=== PATIENT | female | born 1965 | race Caucasian/White ===

== ENCOUNTER 2017-05-18 16:05 | Inpatient (IN) | payer SELFPAY ==
[~2017-05-18] VITALS: Ht 162.6 cm; Wt 99.8 kg
[~2017-05-18 16:05] MED LIST: NO MEDS
[2017-05-18 16:31] VITALS: BP 139/94
--- NOTE | 2017-05-18 19:15 | NUR ---
TO ER BED 7
--- NOTE | 2017-05-18 19:21 | NUR ---
Patient being evaluated by Dr. Ward at bedside.
[2017-05-18] MEDS ORDERED: KETOROLAC 60 MG/2 ML VIAL IM ONE (19:25)
--- NOTE | 2017-05-18 19:30 | NUR ---
51Y/F PT. PRESENTS TO ED WITH C/O LEFT NECK/SHOULDER/ANTERIOR CHEST WALL/LUE SHARP PAIN X 2 DAYS , WORSE LAST NIGHT AND TODAY WITH NAUSEA AND LOOSE STOOLS LAST NIGHT TEMPORAL BURNING PAIN, DIZZINESS SOB, HX--MORALES [place], [place] 2013, DM, HTN. AAO X4, AMBULATORY WITH STEADY GAIT. REPSIRTAIONS, ROOM AIR, EVEN AND UNLABORED. NO INJURY. C/O BODY PAIN 01/31. VSS, ER MD MADE AWARE OF PT. STATUS.
[2017-05-18 19:39] LABS: APPEARANCE,URINE CLEAR (CLEAR); BILIRUBIN,URINE NEGATIVE (NEGATIVE); BLOOD, URINE NEGATIVE (NEGATIVE); COLOR,URINE YELLOW (YELLOW); LEUKOCYTE ESTERASE ,URINE NEGATIVE (NEGATIVE); NITRITE, URINE NEGATIVE (NEGATIVE); UGLUCOSE NEGATIVE (NEGATIVE)
[2017-05-18 19:47] LABS: BASOPHILS # (AUTO) 0.1 K/uL (0.00-0.22); BASOPHILS % (AUTO) 0.5 % (0.0-2.0); EOSINOPHILS # (AUTO) 0.1 K/uL (0-0.4); EOSINOPHILS % (AUTO) 0.9 % (0.0-4.0); HEMATOCRIT 37.4 % (36-48); HEMOGLOBIN 12.3 g/dL (12.0-16.0); LYMPHOCYTES # (AUTO) 2.4 K/uL (2.5-16.5); LYMPHOCYTES % (AUTO) 23.1 % (20.5-51.1); MEAN CORPUSCULAR HEMOGLOBIN 29 pg (27-31); MEAN CORPUSCULAR HGB CONC 33 g/dL (33-37); MEAN CORPUSCULAR VOLUME 89 fL (80-94); MONOCYTES # (AUTO) 0.3 K/uL (0.8-1.0); MONOCYTES % (AUTO) 3.2 % (1.7-9.3); NEUTROPHILS # (AUTO) 7.4 K/uL (1.8-7.7); NEUTROPHILS % (AUTO) 72.3 % (42.2-75.2); PLATELET COUNT (AUTO) 328 K/uL (140-450); RED BLOOD CELL COUNT(AUTO) 4.23 MIL/uL (4.20-5.40); RED CELL DISTRIBUTION WIDTH 12.6 % (11.6-13.7); WHITE BLOOD COUNT (AUTO) 10.3 K/uL (4.8-10.8)
[2017-05-18 20:20] LABS: ANION GAP 10.3 (8-16); CARBON DIOXIDE 28.3 mmol/L (21-32); CREATININE 0.9 mg/dL (0.6-1.3); POTASSIUM 3.6 mmol/L (3.5-5.1)
[2017-05-18 20:25] LABS: TOTAL BILIRUBIN 0.4 mg/dL (0.0-1.0)
[2017-05-18 20:26] LABS: ALBUMIN 3.4 g/dL (3.4-5.0)
[2017-05-18] MEDS ORDERED: NACL 0.9% 1,000 ML IV SCH (21:32)
[2017-05-18] MEDS ORDERED: NITROGLYCERIN 0.4 MG TAB SL ONE (21:35)
[2017-05-18] MEDS ORDERED: ACETAMINOPHEN 325 MG TAB PO PRN (21:35)
[2017-05-18] MEDS ORDERED: ASPIRIN 81 MG TAB.CHEW PO ONE (21:35)
[2017-05-18] MEDS ORDERED: MORPHINE SULFATE 4 MG/ML SYR IVP ONE (21:35)
[2017-05-18] MEDS ORDERED: ONDANSETRON 4 MG/2 ML VIAL IVP PRN (21:35)
[2017-05-18] MEDS ORDERED: ONDANSETRON 4 MG/2 ML VIAL IVP ONE (21:35)
[2017-05-18] MEDS ORDERED: NITROGLYCERIN 0.4 MG TAB SL PRN (21:35)
--- NOTE | 2017-05-18 21:40 | NUR ---
NTG 0.4 MG SL X1 ADMINITERED, NDAR. CHEST PAIN RELIEFE
--- NOTE | 2017-05-18 22:20 | NUR ---
Patient will be admitted to care of . Admited to TELEMETRY. Will go to room 104B. Belongings list completed. Report to KALE MOREL.
[2017-05-18 22:56] LABS: CHOL/HDL RATIO 3.4 (1-4.5); FREE T4 (FREE THYROXINE) 0.99 ng/dL (0.76-1.46); MAGNESIUM 2.1 mg/dL (1.8-2.4); PHOSPHORUS 3.3 mg/dL (2.5-4.9); THYROID STIMULATING HORMONE 1.33 uIU/mL (0.34-3.74)
[2017-05-18 23:00] VITALS: BP 137/80
--- NOTE | 2017-05-18 23:00 | NUR ---
RECEIVED PT FROM ER VIA LUIS WOLFE IN STABLE CONDITION AAOX4. PT HAS C/O BODY ACHES AND CHEST PAIN WHEN SHE PRESENT TO THE ER. PT DENIES ANY CHEST PAIN RIGHT NOW. PT IS ON RA, IV TO R HAND 20G PATENT AND INTACT, INFUSING WELL. SKIN IS INTACT. SKIN IS WARM AND DRY TO TOUCH, RESPIRATIONS ARE EVEN AND UNLABORED, LUNGS CLEAR, BOWEL SOUNDS PRESENT. PT IS AMBULATORY. INITIAL ASSESSMENT COMPLETED. PLAN OF CARE DISCUSSED WITH PT AT THE BEDSIDE, VERBALIZED UNDERSTANDING. ALL SAFETY PRECAUTIONS MET, CALL LIGHT WITHIN REACH, WILL CONTINUE TO MONITOR
[2017-05-18] MEDS: HYDROcodone/APAP 7.5/325 MG 1 TAB PO PRN (23:02)
[2017-05-18 23:09] LABS: BARBITURATE, URINE NEG. ng/ml (NEG <=200); BENZODIAZEPINE, URINE POS. ng/mL (NEG <=200); CANNABINOID, URINE NEG. ng/mL (NEG <=50); COCAINE, URINE NEG. ng/mL (NEG <=300); OPIATE, URINE POS. ng/mL (NEG <=2000); PHENCYCLIDINE SCREEN,URINE NEG. ng/mL (NEG <=25)
[2017-05-19] VITALS: BP 137/80
--- NOTE | 2017-05-19 | NUR ---
SCDS IN PLACE, PT RESTING COMFORTABLY IN BED
[2017-05-19] MEDS ORDERED: ZOLP5TAB1 PO ×2 (00:24→12:47)
[2017-05-19] MEDS ORDERED: BENA40TA PO ×2 (00:24→12:50)
[2017-05-19] MEDS ORDERED: ZOLPIDEM 5 MG TAB PO SCH (00:25)
[2017-05-19] MEDS ORDERED: BENAZEPRIL 20 MG TAB PO SCH ×2 (00:25→09:00)
[2017-05-19] MEDS: METHOCARBAMOL 500 MG TAB PO SCH ×3 (01:25→12:04)
[2017-05-19] MEDS: HYDROcodone/APAP 7.5/325 MG 1 TAB PO PRN ×2 (03:32→12:04)
[2017-05-19 04:00] VITALS: BP 122/76
[2017-05-19 05:06] LABS: BASOPHILS # (AUTO) 0.2 K/uL (0.00-0.22); BASOPHILS % (AUTO) 2.3 % (0.0-2.0); EOSINOPHILS # (AUTO) 0.1 K/uL (0-0.4); EOSINOPHILS % (AUTO) 1.2 % (0.0-4.0); HEMATOCRIT 37.7 % (36-48); HEMOGLOBIN 12.3 g/dL (12.0-16.0); LYMPHOCYTES # (AUTO) 2.2 K/uL (2.5-16.5); LYMPHOCYTES % (AUTO) 26.4 % (20.5-51.1); MEAN CORPUSCULAR HEMOGLOBIN 29 pg (27-31); MEAN CORPUSCULAR HGB CONC 33 g/dL (33-37); MEAN CORPUSCULAR VOLUME 88 fL (80-94); MONOCYTES # (AUTO) 0.5 K/uL (0.8-1.0); NEUTROPHILS # (AUTO) 5.2 K/uL (1.8-7.7); NEUTROPHILS % (AUTO) 64.1 % (42.2-75.2); PLATELET COUNT (AUTO) 305 K/uL (140-450); RED CELL DISTRIBUTION WIDTH 12.9 % (11.6-13.7); WHITE BLOOD COUNT (AUTO) 8.2 K/uL (4.8-10.8)
[2017-05-19 05:38] LABS: ANION GAP 7.8 (8-16); CARBON DIOXIDE 29.5 mmol/L (21-32); CREATININE 0.7 mg/dL (0.6-1.3); POTASSIUM 3.3 mmol/L (3.5-5.1)
[2017-05-19 05:42] LABS: MAGNESIUM 2.1 mg/dL (1.8-2.4); PHOSPHORUS 3.2 mg/dL (2.5-4.9)
--- NOTE | 2017-05-19 06:35 | NUR ---
FNS referral received on 05/19/17 for possibly obesity. Consult reason does not meet high risk criteria per hospital policy. Patient will be seen and assessed according to the nutrition care policy. Erika Smallwood MS, RDN Addendum: 05/19/17 at [address] The above note was entered in error; please disregard
--- NOTE | 2017-05-19 07:12 | NUR ---
GAVE REPORT TO DAY NURSE AT THE BEDSIDE FOR CONTINUITY OF CARE, PT IN STABLE CONDITION
--- NOTE | 2017-05-19 07:13 | NUR ---
RECEIVED REPORT FROM NIGHT RN, PT LYING IN BED ON RA, A/OX4, PLAN OF CARE DISCUSSED WITH PT, PT VERBALIZED UNDERSTANDING OF CARE, IV PATENT AND INTACT, PT DENIES ANY PAIN, NO S/S OF ACUTE DISTRESS, SAFETY PRECAUTIONS TAKEN, CALL LIGHT WITHIN REACH, WILL CONT TO MONITOR.
[2017-05-19 07:50] VITALS: BP 132/79
[2017-05-19] MEDS ORDERED: ASPIRIN 81 MG TAB.CHEW PO SCH (09:00)
[2017-05-19] MEDS ORDERED: DOCUSATE SODIUM 100 MG GELCAP PO SCH (09:00)
[2017-05-19] MEDS ORDERED: METOPROLOL 25 MG TAB PO SCH (09:00)
[2017-05-19] MEDS ORDERED: LISINOPRIL 5 MG TAB PO SCH (09:00)
[2017-05-19] MEDS ORDERED: PANTOPRAZOLE 40 MG INJ VIAL IVP SCH (09:00)
[2017-05-19] MEDS ORDERED: POTASSIUM CHLORIDE 10 MEQ TABER PO SCH (09:00)
--- NOTE | 2017-05-19 10:15 | NUR ---
MEDS GIVEN WITH EDUCATION, PT VERBALIZED UNDERSTANDING, PT TOLERATED MEDS WELL, WILL CONT TO MONITOR.
--- NOTE | 2017-05-19 11:41 | NUR ---
PT OFF UNIT TO XRAY.
[2017-05-19 11:56] VITALS: BP 119/76
[2017-05-19] MEDS ORDERED: ATOR20TA40 PO (12:07)
[2017-05-19] MEDS ORDERED: ASPI81CT95 PO (12:07)
[2017-05-19] MEDS ORDERED: MELO7.5T11 PO (12:47)
[2017-05-19] MEDS ORDERED: CYCL5TAB PO (12:48)
[2017-05-19 14:34] VITALS: BP 119/76
--- NOTE | 2017-05-19 15:25 | NUR ---
PT CLEARED FOR DISCHARGED HOME, DISCHARGE INSTRUCTIONS GIVEN, PT VERBALIZED UNDERSTANDING, NO S/S OF ACUTE DISTRESS, IV TAKEN OUT TIP INTACT, SISTER AT BESIDE, PT AMBULATED TO [facility], PT REMAINS STABLE.
[2017-05-19] MEDS ORDERED: ATORVASTATIN 20 MG TAB PO SCH (21:00)
[2017-05-19] MEDS ORDERED: ZOLPIDEM 5 MG TAB PO PRN (21:00)
== END 2017-05-19 15:25 | disposition home or self-care (01) | DRG 206 ==
LOC: MED 16:05 → MTU 21:36
PROVIDERS: ADMIT Family Medicine; ATTEND Family Medicine
DX: M94.0 Chondrocostal junction syndrome [Tietze] (principal); E11.9 Type 2 diabetes mellitus without complications; I25.10 Atherosclerotic heart disease of native coronary artery without angina pectoris; E78.5 Hyperlipidemia, unspecified; G51.0 Bell's palsy; M50.33 Other cervical disc degeneration, cervicothoracic region; G47.00 Insomnia, unspecified; E66.9 Obesity, unspecified; I10 Essential (primary) hypertension; I25.2 Old myocardial infarction; Z68.37 Body mass index [BMI] 37.0-37.9, adult; Z91.14 Patient's other noncompliance with medication regimen; Z90.710 Acquired absence of both cervix and uterus; Z79.899 Other long term (current) drug therapy; Z79.82 Long term (current) use of aspirin
CPT/HCPCS: 36415; 70490; 71010; 73030; 80048; 80053; 80305; 81003; 81025; 82140; 82150; 82550; 83036; 83605; 83690; 83735; 83880; 84100; 84439; 84443; 84484; 85025; 85610; 85730; 87081; 93005; 96372; 96374; 96375; 99285; C9113; J1885; J2270; J2405; J7030; Q0092